=== PATIENT | female | born 1945 | race Caucasian/White ===

== ENCOUNTER 2018-09-10 17:36 | Inpatient (IN) | payer OTHER ==
[~2018-09-10 17:36] MED LIST: LISINOPRIL 10 MG TABLET (FP) PO SCH
[2018-09-10 17:42] VITALS: BMI 35.4
--- NOTE | 2018-09-10 18:27 | PDOC ---
History of Present Illness - General Chief Complaint: Edema Stated Complaint: DIABETES, HIGH BLOOD PRESSURE Time Seen by Provider: 09/10/18 17:54 - History of Present Illness Initial Comments: 09/10/18 18:26 Patient is a 72 year old female with past medical history of HTN and DM, presented with right facial drooping that started last night. Patient noted right eyelid drooping before she slept, and noted it worsening this morning. She had her blood pressure checked this morning which was elevated at 180/82. Patient denies headache, dizziness, blurring of vision, difficulty swallowing, slurring of speech, facial numbness. Patient also reports bilateral leg swelling that started yesterday. Denies chest pain, SOB, palpitations, abdominal pain, diarrhea, constipation, urinary symptoms. Past History - Past Medical History Allergies/Adverse Reactions: Allergies Allergy/AdvReac Type Severity Reaction Status Date / Time No Known Allergies Allergy Verified 09/10/18 17:38 Home Medications: Ambulatory Orders Aspirin [ASA -] 81 mg PO DAILY 09/10/18 Hydrochlorothiazide [Hctz -] 25 mg PO DAILY 09/10/18 Lisinopril 10 mg PO DAILY 09/10/18 Metoprolol Tartrate 50 mg PO BID 09/10/18 metFORMIN HCL [Metformin HCl] 500 mg PO DAILY 09/10/18 Amlodipine Besylate [Norvasc -] 5 mg PO DAILY 30 Days #30 tablet 09/13/18 Atorvastatin Ca [Lipitor] 80 mg PO HS 30 Days #30 tablet 09/13/18 COPD: No Diabetes: Yes HTN: Yes - Immunization History Immunization Up to Date: Yes - Suicide/Smoking/Psychosocial Hx Smoking History: Never smoked Hx Alcohol Use: No Drug/Substance Use Hx: No Review of Systems - Review of Systems Constitutional: No: Chills, Fever, Loss of Appetite, Weakness HEENTM: No: Eye Pain, Recent change in vision, Ear Discharge, Nose Congestion, Difficulty Swallowing Respiratory: No: Cough, Shortness of Breath Cardiac (ROS): No: Chest Pain, Lightheadedness, Palpitations ABD/GI: No: Abdominal Distended, Constipated, Diarrhea, Nausea, Vomiting : No: Burning, Dysuria, Discharge Neurological: No: Headache, Numbness, Tingling, Weakness, Unsteady Gait *Physical Exam - Vital Signs Last Vital Signs Temp Pulse Resp BP Pulse Ox 98.0 F 62 18 179/68 H 97 09/10/18 17:38 09/10/18 17:38 09/10/18 17:38 09/10/18 17:38 09/10/18 17:38 - Physical Exam Comments: 09/10/18 18:53 General: awake, alert, oriented, not in acute distress Head: no signs of head trauma HEENT: PERRLA, EOMI, sclerae anicteric, no nasal discharge, non-erythematous oropharynx, dry mucous membranes Neck:soft, supple, trachea midline without thyromegaly Lungs:clear to auscultation bilaterally, good air entry Heart:regular rate and rhythm, normal S1/S2, no m,r,g Abdomen:soft, nontender, nondistended, NABS Ext: +2 pulses, +nonpitting edema, no cyanosis, no clubbing Neuro: AAOx4, +right facial drooping, CN II-XII intact, motor strength 5/5, sensation intact, no dysmetria, no dysdiadochokinesia, normal speech, normal gait NIH stroke scale : +1 Moderate Sedation - Procedure Monitoring Vital Signs: Procedure Monitoring Vital Signs Temperature 98.0 F 09/10/18 17:38 Pulse Rate 62 09/10/18 17:38 Respiratory Rate 18 09/10/18 17:38 Blood Pressure 179/68 H 09/10/18 17:38 O2 Sat by Pulse Oximetry (%) 97 09/10/18 17:38 ED Treatment Course - LABORATORY CBC & Chemistry Diagram: 09/13/18 05:30 09/13/18 05:30 Medical Decision Making - Medical Decision Making 09/10/18 19:08 Patient is a 72 year old female with past medical history of HTN and DM, presented with right facial drooping that started last night. DDx include but not limited to CVA, Walker's palsy, electrolyte abnormalities CBC, CMP, Cardiac profile EKG Head CT without contrast Will admit for further work-up of CVA vs Walker's palsy *DC/Admit/Observation/Transfer Diagnosis at time of Disposition: Cerebrovascular accident (CVA) - Discharge Dispostion Decision to Admit order: Yes - Prescriptions - Referrals - Patient Instructions - Post Discharge Activity
[2018-09-10] MEDS ORDERED: SODIUM CHLORIDE 1,000 ML IV SCH (19:00)
--- NOTE | 2018-09-10 19:45 | PDOC ---
Attending Attestation - Resident Resident Name: Augusta Gar - ED Attending Attestation I have performed the following: I have examined & evaluated the patient, The case was reviewed & discussed with the resident, I agree w/resident's findings & plan, Exceptions are as noted - HPI HPI: 09/10/18 19:39 72-year-old female patient with history of hypertension, diabetes presents with mild right-sided facial droop since yesterday night. The patient stated that she was undergoing a mild viral syndrome. Denies prior history of Lyme disease. Noted that she was still some mild right facial droop but denies any other symptoms including numbness or weakness. Denies slurring of speech. Denies chest pain or short of breath. Denies fevers or chills. Patient had checked her blood pressure today and noted that it was 180 systolic when is typically 130. She reports adherence to medications. - Physicial Exam PE: 09/10/18 19:45 GENERAL: Awake, alert, and fully oriented, in no acute distress HEAD: No signs of trauma EYES: EOMI, sclera anicteric, conjunctiva clear ENT: Auricles normal inspection, hearing grossly normal, nares patent, Moist mucosa NECK: Normal ROM, supple, LUNGS: Breath sounds equal, clear to auscultation bilaterally. No wheezes, and no crackles HEART: Regular rate and rhythm, normal S1 and S2, no murmurs, rubs or gallops ABDOMEN: Soft, nontender, No guarding, no rebound. No masses EXTREMITIES: Normal range of motion, no edema. No clubbing or cyanosis. No cords, erythema, or tenderness NEUROLOGICAL: Cranial nerves II through XII but with very mild right eyelid droop. Able to wrinkle forehead. Normal speech, no dysarthria, no dysmetria. Heel to duncan normal. No pronator drift. Normal sensation and strength intact throughout. SKIN: Warm, Dry, normal turgor, no rashes or lesions noted. - Medical Decision Making 09/10/18 19:47 Vital Signs Temp Pulse Resp BP Pulse Ox 98.0 F 62 18 179/68 H 97 09/10/18 17:38 09/10/18 17:38 09/10/18 17:38 09/10/18 17:38 09/10/18 17:38 Though pt has isolated facial droop, pt is able to wrinkle forehead. With BP is 180s systolic, and age and hx of HTN, DM, must presume ischemic stroke until proven otherwise. Walker's could potentially be in differential. However, will obtain head CT. Will likely require MRI brain. Labs, ecg, chest xray. Aspirin if head CT not hemorrhagic. Admit. 09/10/18 20:43 CBC, BMP 09/10/18 18:[address] reviewed. No acute findings. Heart Score/ECG Review #1 ECG reviewed & interpreted by me at: 19:25 09/10/18 21:33 NSR 53 with 1st degree AV block, normal axis, QRS 82 msec, QTC 416 msec, no std/ tyron NIH Stroke Scale - Last Known Well Date/Time & Onset Date Last Known Well: 09/09/18 - Initial Evaluation Level of consciousness: Alert Ask patient the month and their age: Answers both correctly Ask patient to open & close eyes; make fist and let go: Obeys both correctly Best gaze (horizontal eye movement): Normal Visual field testing: No visual field loss Facial paresis (Show teeth/raise eyebrows/close eyes tight): Minor paralysis ( flattened nasolabial fold, asymmetry on smiling) Motor Function: Left Arm: Normal Motor Function: Right Arm: Normal (extends arm 90 (or 45) degrees for 10 seconds without drift Motor Function: Left Leg: Normal (extends leg 30 degrees for 5 seconds without drift) Motor Function: Right Leg: Normal (extends leg 30 degrees for 5 seconds without drift) Limb Ataxia: No ataxia Sensory(Use pinprick test arms,legs,trunk,face/side to side): Normal Best language (Describe picture, name items, read sentences): No Aphasia Dysarthria (read several words): Normal articulation Extinction and Inattention: No abnormality - Total Score NIH Stroke Scale Score: 1
[2018-09-10 19:46] LABS: BASO % 0.5 % (0-2.0); EOS % 6.6 % (0-4.5); HEMATOCRIT 34.1 % (32.4-45.2); LYMPH % 25.3 % (8-40); MCH 22.9 pg (25.7-33.7); MCHC 32.4 g/dl (32.0-36.0); MEAN CELL VOLUME 70.6 fl (80-96); MEAN PLT VOLUME 8.6 fl (7.5-11.1); NEUT % 59.6 % (42.8-82.8); PLATELET COUNT 274 K/MM3 (134-434); RBC 4.83 M/mm3 (3.60-5.2); RDW 16.9 % (11.6-15.6)
[2018-09-10 20:03] LABS: INR 1.16 (0.83-1.09); PROTHROMBIN TIME (PATIENT) 13.7 SEC (9.7-13.0)
[2018-09-10 20:49] LABS: ALBUMIN 3.5 g/dl (3.4-5.0); ALK PHOS 87 U/L (45-117); ANION GAP 6 MMOL/L (8-16); BILIRUBIN,TOTAL 0.3 mg/dL (0.2-1); BLOOD UREA NITROGEN 21 mg/dL (7-18); CALCIUM 8.8 mg/dL (8.5-10.1); CHLORIDE 108 mmol/L (98-107); CHOLESTEROL 127 mg/dL (50-200); CO2 29 mmol/L (21-32); CREATININE 0.8 mg/dL (0.55-1.3); GLUCOSE,RANDOM 94 mg/dL (74-106); HDL CHOLESTEROL 70 mg/dL (40-60); POTASSIUM 4.1 mmol/L (3.5-5.1); SGOT/AST 38 U/L (15-37); SGPT/ALT 72 U/L (13-61); SODIUM 144 mmol/L (136-145); TOT PROT 6.6 g/dl (6.4-8.2); TRIGLYCERIDES 62 mg/dL (0-150)
[2018-09-10] MEDS ORDERED: ASPIRIN 325 MG ENTERIC COATED TABLET (FP) PO ONE (20:54)
[2018-09-10] MEDS ORDERED: ASPIRIN 325 MG TABLET ONE (21:07)
--- NOTE | 2018-09-10 21:07 | HP ---
CHIEF COMPLAINT:R/O CVA PCP:Dr Gallego HISTORY OF PRESENT ILLNESS: Patient is a 72 year old female with past medical history of HTN and DM, presented with right facial drooping that started last night with slurry speech. Patient noted right eyelid drooping before she slept, and noted it worsening this morning. She had her blood pressure checked this morning which was elevated at 180/82 around 2 [facility] . Patient denies headache , dizziness, blurring of vision, difficulty swallowing, facial numbnessor ext weakness, tingling. Patient also reports bilateral leg swelling that started yesterday. Denies chest pain, SOB, palpitations, abdominal pain, diarrhea, constipation, urinary symptoms. had a history of flue last month and her son had flue as well. reports palpitation 2 weeks ago. ER course was notable for: (1)Head CT (2)CXR (3)EKG Recent Travel: denies PAST MEDICAL HISTORY: HTN , DM PAST SURGICAL HISTORY: Tubal resection after ectopic Social History: Smokin/2 PPD for 10 years in her 19 Alcohol:socially Drugs: denies Family History:HTN, Heart attack in her father at age of 89 Allergies No Known Allergies Allergy (Verified 09/10/18 17:38) HOME MEDICATIONS: Home Medications Medication Instructions Recorded Aspirin [ASA -] 81 mg PO DAILY 09/10/18 Lisinopril 10 mg PO DAILY 09/10/18 Metoprolol Tartrate 50 mg PO BID 09/10/18 metFORMIN HCL [Metformin HCl] 500 mg PO DAILY 09/10/18 REVIEW OF SYSTEMS CONSTITUTIONAL: Absent: fever, chills, diaphoresis, generalized weakness, malaise, loss of appetite, weight change HEENT: Absent: rhinorrhea, nasal congestion, throat pain, throat swelling, difficulty swallowing, mouth swelling, ear pain, eye pain, visual changes CARDIOVASCULAR: Absent: chest pain, syncope, palpitations, irregular heart rate, lightheadedness , peripheral edema RESPIRATORY: Absent: cough, shortness of breath, dyspnea with exertion, orthopnea, wheezing, stridor, hemoptysis GASTROINTESTINAL: Absent: abdominal pain, abdominal distension, nausea, vomiting, diarrhea, constipation, melena, hematochezia GENITOURINARY: Absent: dysuria, frequency, urgency, hesitancy, hematuria, flank pain, genital pain MUSCULOSKELETAL: Absent: myalgia, arthralgia, joint swelling, back pain, neck pain SKIN: Absent: rash, itching, pallor HEMATOLOGIC/IMMUNOLOGIC: Absent: easy bleeding, easy bruising, lymphadenopathy, frequent infections ENDOCRINE: Absent: unexplained weight gain, unexplained weight loss, heat intolerance, cold intolerance NEUROLOGIC: Absent: headache, focal weakness or paresthesias, dizziness, unsteady gait, seizure, mental status changes, bladder or bowel incontinence PSYCHIATRIC: Absent: anxiety, depression, suicidal or homicidal ideation, hallucinations. PHYSICAL EXAMINATION Vital Signs - 24 hr 09/10/18 09/10/18 17:38 21:05 Temperature 98.0 F 98.1 F Pulse Rate 62 Pulse Rate [ 58 L Right Radial] Respiratory 18 20 Rate Blood Pressure 179/68 H Blood Pressure 162/81 [Left Arm] O2 Sat by Pulse 97 99 Oximetry (%) GENERAL: Awake, alert, and fully oriented, in no acute distress. HEAD: Normal with no signs of trauma. EYES: Pupils equal, round and reactive to light, extraocular movements intact, right eye lid drop EARS, NOSE, THROAT: Moist mucous membranes. NECK: Normal range of motion, supple LUNGS: Breath sounds equal, clear to auscultation bilaterally. No wheezes, and no crackles. No accessory muscle use. HEART: Regular rate and rhythm, normal S1 and S2 without murmur, rub or gallop. ABDOMEN: Obese, Soft, nontender, not distended, normoactive bowel sounds, no guarding, MUSCULOSKELETAL: Normal range of motion at all joints. No bony deformities or tenderness. No CVA tenderness. UPPER EXTREMITIES: 2+ pulses, warm, well-perfused. No cyanosis. No clubbing. No peripheral edema. LOWER EXTREMITIES: 2+ pulses, warm, well-perfused. No calf tenderness. +2 peripheral edema. NEUROLOGICAL: right facial drop eye lid and mouth . Normal speech. 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 hip flexion 5/5 , hip extesion 5/5 B/L, leg flexion and extension 5/5 B/L , foot flexion and extension 5/5 B/L. PSYCHIATRIC: Cooperative. Good eye contact. SKIN: Warm, dry, normal turgor, Laboratory Results - last 24 hr 09/10/18 09/10/1809/10/18 18:38 18:38 18:38 WBC 9.0 RBC 4.83 Hgb 11.0 Hct 34.1 MCV 70.6 L MCH 22.9 L MCHC 32.4 RDW 16.9 H Plt Count 274 MPV 8.6 Absolute Neuts (auto) 5.4 Neutrophils % 59.6 Lymphocytes % 25.3 Monocytes % 8.0 Eosinophils % 6.6 H D Basophils % 0.5 Nucleated RBC % 0 PT with INR 13.70 H INR 1.16 H Sodium 144 Potassium 4.1 Chloride 108 H Carbon Dioxide 29 Anion Gap 6 L BUN 21 H Creatinine 0.8 Creat Clearance w eGFR > 60 Random Glucose 94 Calcium 8.8 Total Bilirubin 0.3 AST 38 H ALT 72 H Alkaline Phosphatase 87 Total Protein 6.6 Albumin 3.5 Triglycerides 62 Cholesterol 127 Total LDL Cholesterol 47 HDL Cholesterol 70 H Blood Type Antibody Screen 09/10/18 18:38 WBC RBC Hgb Hct MCV MCH MCHC RDW Plt Count MPV Absolute Neuts (auto) Neutrophils % Lymphocytes % Monocytes % Eosinophils % Basophils % Nucleated RBC % PT with INR INR Sodium Potassium Chloride Carbon Dioxide Anion Gap BUN Creatinine Creat Clearance w eGFR Random Glucose Calcium Total Bilirubin AST ALT Alkaline Phosphatase Total Protein Albumin Triglycerides Cholesterol Total LDL Cholesterol HDL Cholesterol Blood Type O POSITIVE Antibody Screen Negative CBC, BMP 09/10/18 18:38 09/10/18 18:38 ASSESSMENT/PLAN: 72 year old female with pmhx of HTN , DM , presented with one day history of right facial drop admitted to R/O CVA # Right facial drop R/o CVA unlikley Lyme or Walker palsy as she had slurry speech * more than 24 hour since last seen in usual state of health * CBC , CMP , ESR , CRP * PTT, INR * ASA 325 * Lipid panel * permissive HTN * finger stick * low sodium diabetic diet as she was able to swallow water at bed side * PT , early ambulation * head CT negative primary reading , BRAIN MRI tomorrow * Echocardiogram * Neurocheck q 2 hr * neurology was consulted BY ED Dr Dale * lipid panel WNL though will start statin 40 * ESR, CRP , Lyme screen * NIH stroke scale 1 # HTN * permissive HTN * resume home meds tomorrow losartan 10 BID , HCTZ 25 daily, metoprolol tartarat 25 mg BID # DM * On metformin at home will hold for now * BGM ACHS * ISS * A1c # obesity * BMI 35.4 * Educated about exercise and weight loss # FEN * No standing fluids * Monitor Lytes * Low sodium diabetic diet # proph * Dvts : SCDS Both legs #Dispo * Tele obs She use [facility] [address] was closed upon admission will verify home meds when open Daughtersaid she take HCTZ 25 mg po daily need o be verified Visit type - Emergency Visit Emergency Visit: Yes Care time: The patient presented to the Emergency Department on the above date and was hospitalized for further evaluation of their emergent condition. - New Patient This patient is new to me today: Yes Date on this admission: 09/10/18 - Critical Care Critical Care patient: No
--- NOTE | 2018-09-10 21:08 | PN ---
Teaching Attending Note Name of Resident: Chapin Spicer ATTENDING PHYSICIAN STATEMENT I saw and evaluated the patient. I reviewed the resident's note and discussed the case with the resident. I agree with the resident's findings and plan as documented. SUBJECTIVE: Patient is a 72-year-old woman with history of hypertension, NIDDM and obesity who presents with mild right-sided facial droop since yesterday night. The patient stated that she was undergoing a mild viral syndrome. Denies prior history of Lyme disease. Noted that she was still some mild right facial droop but denies any other symptoms including numbness or weakness. Denies slurring of speech. Denies chest pain or short of breath. Denies fevers or chills. Patient had checked her blood pressure today and noted that it was 180 systolic when is typically 130. She reports adherence to medications. OBJECTIVE: Alert Vital Signs Period Temp Pulse Resp BP Sys/Morales Pulse Ox Last 24 Hr 98.0 F-98.1 F 58-62 18-20 162-179/68-81 97-99 HEENT: No Jaundice, eye redness or discharge, PERRLA, EOMI. Mild right lower facial droop. Normocephalic, atraumatic. External ears are normal and hearing is grossly intact. No nasal discharge. Neck: Supple, nontender. No palpable adenopathy or thyromegaly. No JVD Chest: Good effort. Clear to auscultation and percussion. Heart: Regular. No S3, rub or murmur Abdomen: Not distended, soft, nontender and no HSM. No rebound or guarding. Normoactive bowel sounds. Ext: Peripheral pulses intact. No leg edema. Skin: Warm and dry. No petechiae, rash or ecchymosis. Neuro: Alert. Oriented x3. CN 2-12 grossly intact. Sensation grossly intact in all four extremities and DTR are symmetric. Current Medications Generic Name Dose Route Start Last Admin Trade Name Freq PRN Reason Stop Dose Admin Sodium Chloride 1,000 mls @ 42 mls/hr 09/10/18 19:00 09/10/18 20:13 Normal Saline - IV 42 mls/hr ASDIR JOSE LUIS Administration Home Medications Medication Instructions Recorded Aspirin [ASA -] 81 mg PO DAILY 09/10/18 Lisinopril 10 mg PO DAILY 09/10/18 Metoprolol Tartrate 50 mg PO BID 09/10/18 metFORMIN HCL [Metformin HCl] 500 mg PO DAILY 09/10/18 Abnormal Lab Results 09/10/18 09/10/18 09/10/18 18:38 18:38 18:38 MCV 70.6 L MCH 22.9 L RDW 16.9 H Eosinophils % 6.6 H D PT with INR 13.70 H INR 1.16 H Chloride 108 H Anion Gap 6 L BUN 21 H AST 38 H ALT 72 H HDL Cholesterol 70 H ASSESSMENT AND PLAN: 1. r/o CVA - Noncontrast head CT didnot show any acute pathology. EKG shows bradycardia wtih no significant ST-T wave changes. NIHSS was 1. Presentation highly suspicious for a CVA. Passed swallow evaluation. Will admit to telemetry , get ECHO, carotid doppler, optimize statin therapy, continue Aspirin, consult PT and Neurology. For now, will avoid aggressive lowering of his BP. Nonpharmacologic measures to control hypertension like weight loss, salt restriction and exercise discussed. 2. DM - For now, we will hold the home diabetes drugs and implement sliding scale insulin regimen. Provide comprehensive diabetes care with patient teaching and counseling about the importance of euglycemia, eye care and foot care. 3. Obesity - Will provide patient all the necessary assistance, counseling and positive reinforcement to facilitate weight loss. Consult cia agent. 4. DVT prophylaxis - Lovenox 40 mg SQ q 24 hours. 5. Advance directives - Full code
[2018-09-10] MEDS ORDERED: ACETAMINOPHEN 325 MG TABLET (FP) PO PRN (22:23)
[2018-09-11 02:29] LABS: URINE APPEARANCE CLEAR; URINE BILIRUBIN NEGATIVE (<2.0 mg/dL); URINE COLOR STRAW; URINE GLUCOSE (UA) NEGATIVE (NEGATIVE); URINE KETONE NEGATIVE (NEGATIVE); URINE LEUK ESTERASE TRACE (NEGATIVE); URINE NITRITE NEGATIVE (NEGATIVE); URINE PROTEIN NEGATIVE (NEGATIVE); URINE UROBILINOGEN NEGATIVE mg/dL (0.2-1.0)
[2018-09-11 02:40] LABS: EPI CELLS RARE /HPF (FEW)
[2018-09-11 05:57] LABS: BASO % 0.4 % (0-2.0); EOS % 5.3 % (0-4.5); HEMATOCRIT 33.1 % (32.4-45.2); HEMOGLOBIN 10.2 GM/dL (10.7-15.3); LYMPH % 27.9 % (8-40); MCHC 30.8 g/dl (32.0-36.0); MEAN CELL VOLUME 71.3 fl (80-96); MEAN PLT VOLUME 8.7 fl (7.5-11.1); NEUT % 58.4 % (42.8-82.8); PLATELET COUNT 236 K/MM3 (134-434); RBC 4.64 M/mm3 (3.60-5.2); RDW 16.9 % (11.6-15.6); WHITE BLOOD COUNT 7.5 K/mm3 (4.0-10.0)
[2018-09-11 06:11] LABS: INR 1.19 (0.83-1.09); PROTHROMBIN TIME (PATIENT) 14.1 SEC (9.7-13.0)
[2018-09-11 06:14] LABS: ACTIVATED PTT 30.2 SECONDS (25.2-36.5)
[2018-09-11 06:38] LABS: ALBUMIN 3.2 g/dl (3.4-5.0); ALK PHOS 74 U/L (45-117); ANION GAP 7 MMOL/L (8-16); BILIRUBIN,TOTAL 0.5 mg/dL (0.2-1); BLOOD UREA NITROGEN 17 mg/dL (7-18); CALCIUM 8.5 mg/dL (8.5-10.1); CHLORIDE 111 mmol/L (98-107); CO2 28 mmol/L (21-32); CREATININE 0.7 mg/dL (0.55-1.3); GLUCOSE,RANDOM 94 mg/dL (74-106); MAGNESIUM 2.2 mg/dL (1.8-2.4); PHOSPHOROUS 4.1 mg/dL (2.5-4.9); POTASSIUM 4.4 mmol/L (3.5-5.1); SGOT/AST 32 U/L (15-37); SGPT/ALT 64 U/L (13-61); SODIUM 146 mmol/L (136-145)
--- NOTE | 2018-09-11 09:21 | EKG ---
Test Reason : Blood Pressure : / mmHG Vent. Rate : 053 BPM Atrial Rate : 053 BPM P-R Int : 204 ms QRS Dur : 082 ms QT Int : 444 ms P-R-T Axes : 046 078 051 degrees QTc Int : 416 ms SINUS BRADYCARDIA OTHERWISE NORMAL ECG WHEN COMPARED WITH ECG OF 14-JAN-2014 21:00, NO SIGNIFICANT CHANGE WAS FOUND Confirmed by ИВАН PINEDA MD ([id number]) on 09/11/2018 9:21:24 AM Referred By: Confirmed By:ИВАН PINEDA MD
[2018-09-11] MEDS: LISINOPRIL 10 MG TABLET (FP) PO SCH (10:45)
[2018-09-11] MEDS: ASPIRIN 81 MG CHEWABLE TABLETS PO SCH (10:45)
[2018-09-11] MEDS: METOPROLOL TARTRATE 50 MG TABLET (FP) PO SCH ×2 (10:45→22:08)
[2018-09-11 10:46] LABS: ERYTHROCYTE SEDIMENTATION RATE 6 mm/hr (0-30)
--- NOTE | 2018-09-11 10:57 | CON.NEURO ---
Consult - Alcohol/Substance Use Hx Alcohol Use: No - Smoking History Smoking history: Never smoked Home Medications - Allergies Allergies/Adverse Reactions: Allergies Allergy/AdvReac Type Severity Reaction Status Date / Time No Known Allergies Allergy Verified 09/10/18 17:38 - Home Medications Home Medications: Ambulatory Orders Aspirin [ASA -] 81 mg PO DAILY 09/10/18 Hydrochlorothiazide [Hctz -] 25 mg PO DAILY 09/10/18 Lisinopril 10 mg PO DAILY 09/10/18 Metoprolol Tartrate 50 mg PO BID 09/10/18 metFORMIN HCL [Metformin HCl] 500 mg PO DAILY 09/10/18 Physical Exam-Neuro Vital Signs: Vital Signs Temperature 97.9 F 09/11/18 09:49 Pulse Rate 68 09/11/18 09:49 Respiratory Rate 18 09/11/18 09:49 Blood Pressure 167/85 09/11/18 09:49 O2 Sat by Pulse Oximetry (%) 99 09/11/18 09:49 Labs: CBC, BMP 09/11/18 05:05 09/11/18 05:05 INR, PTT INR 1.19 (0.83-1.09) H 09/11/18 05:05 Assessment/Plan cc facial droppiness and slurring of speech HPI 72 year old female history of HTN,DM, came with right facial dropoiness and slurring of speech. Patient was seen with daugher at bedside. Her bp was elevated upto 180/82. Patient's slurring of speech is ormal. Patient denies any headhace, or arm or leg weaknes,s no diplopia and dysphagia. Patient ct scan was normal, she had mri done and report pending. P PAST MEDICAL HISTORY: HTN , DM PAST SURGICAL HISTORY: Tubal resection after ectopic Social History: Smokin/2 PPD for 10 years in her 19 Alcohol:socially Drugs: denies Family History:HTN, Heart attack in her father at age of 89 Allergies No Known Allergies Allergy (Verified 09/10/18 17:38) HOME MEDICATIONS: Home Medications Medication Instructions Recorded Aspirin [ASA -] 81 mg PO DAILY 09/10/18 Lisinopril 10 mg PO DAILY 09/10/18 Metoprolol Tartrate 50 mg PO BID 09/10/18 metFORMIN HCL [Metformin HCl] 500 mg PO DAILY 09/10/18 ROS reviewed in chart and Family History reviewed in chart NEUROLOGICAL EXAMINATION Alert oriented x 3, speech is normal, no neck stiffness eomi, pupils reactive, ? right facial palsy motor 5/5 all extremity sensation is normal for pp,ft planter is flexor ct head is normal carotid ultrasound and mri of brain is pending Assessment; Likely to be TIA, symptoms almost resolved, risk factor DM,HTN plan start lipitor 80 mg once a day continue aspoirin follow up mri results and carotid ultrasound - echo may be obtained , if she admitted - dvt prophylaxis, speech therapy, and PT Thankign you so much Darrion Dale MD
[2018-09-11] MEDS: INSULIN SLIDING SCALE (NOVOLOG) 1 VIAL SQ SCH ×3 (11:43→22:14)
--- NOTE | 2018-09-11 14:48 | PN ---
Physical Exam: SUBJECTIVE: Patient seen and examined, minimal right facial droop, but no slurry speech. Overall better per discussion with daughter at bedside. OBJECTIVE: Vital Signs Period Temp Pulse Resp BP Sys/Morales Pulse Ox Last 24 Hr 97.9 F-98.4 F 54-68 18-20 162-179/64-85 97-99 GENERAL: The patient is awake, alert, and fully oriented, in no acute distress. HEAD: Normal with no signs of trauma. EYES: PERRL, extraocular movements intact, sclera anicteric, conjunctiva clear. No ptosis. ENT: Ears normal, nares patent, oropharynx clear without exudates, moist mucous membranes. NECK: Trachea midline, full range of motion, supple. LUNGS: Breath sounds equal, clear to auscultation bilaterally, no wheezes, no crackles, no accessory muscle use. HEART: S1S2 regular ABDOMEN: Soft, nontender, obese, nondistended, normoactive bowel sounds, no guarding, no rebound, EXTREMITIES: 2+ pulses, warm, well-perfused, no edema. NEUROLOGICAL: AAOx3, right facial droop, speech at baseline per family at bedside, EOMI, sensations intact and symmetric to light touch bialterally, pwoer 5/5, sensation intact to light touch, toes down going, DTR b/l symmetric, Cranial nerves II through XII grossly intact. gait not observed. PSYCH: Normal mood, normal affect. SKIN: Warm, dry, normal turgor, no rashes or lesions noted Laboratory Results - last 24 hr 09/10/18 09/10/18 09/10/18 18:38 18:38 18:38 WBC 9.0 RBC 4.83 Hgb 11.0 Hct 34.1 MCV 70.6 L MCH 22.9 L MCHC 32.4 RDW 16.9 H Plt Count 274 MPV 8.6 Absolute Neuts (auto) 5.4 Neutrophils % 59.6 Lymphocytes % 25.3 Monocytes % 8.0 Eosinophils % 6.6 H D Basophils % 0.5 Nucleated RBC % 0 ESR PT with INR 13.70 H INR 1.16 H PTT (Actin FS) Sodium 144 Potassium 4.1 Chloride 108 H Carbon Dioxide 29 Anion Gap 6 L BUN 21 H Creatinine 0.8 Creat Clearance w eGFR > 60 POC Glucometer Random Glucose 94 Hemoglobin A1c % Calcium 8.8 Phosphorus Magnesium Total Bilirubin 0.3 AST 38 H ALT 72 H Alkaline Phosphatase 87 Creatine Kinase 151 Creatine Kinase Index 1.0 CK-MB (CK-2) 1.6 Troponin I < 0.02 C-Reactive Protein Total Protein 6.6 Albumin 3.5 Triglycerides 62 Cholesterol 127 Total LDL Cholesterol 47 HDL Cholesterol 70 H TSH Urine Color Urine Appearance Urine pH Ur Specific [place] Urine Protein Urine Glucose (UA) Urine Ketones Urine Blood Urine Nitrite Urine Bilirubin Urine Urobilinogen Ur Leukocyte Esterase Urine WBC (Auto) Urine RBC (Auto) Ur Epithelial Cells Blood Type Antibody Screen 09/10/18 09/10/18 09/11/18 18:38 22:58 00:20 WBC RBC Hgb Hct MCV MCH MCHC RDW Plt Count MPV Absolute Neuts (auto) Neutrophils % Lymphocytes % Monocytes % Eosinophils % Basophils % Nucleated RBC % ESR PT with INR INR PTT (Actin FS) Sodium Potassium Chloride Carbon Dioxide Anion Gap BUN Creatinine Creat Clearance w eGFR POC Glucometer Random Glucose Hemoglobin A1c % Calcium Phosphorus Magnesium Total Bilirubin AST ALT Alkaline Phosphatase Creatine Kinase 129 Creatine Kinase Index CK-MB (CK-2) Troponin I 0.02 C-Reactive Protein Total Protein Albumin Triglycerides Cholesterol Total LDL Cholesterol HDL Cholesterol TSH Urine Color Urine Appearance Urine pH Ur Specific [place] Urine Protein Urine Glucose (UA) Urine Ketones Urine Blood Urine Nitrite Urine Bilirubin Urine Urobilinogen Ur Leukocyte Esterase Urine WBC (Auto) Urine RBC (Auto) Ur Epithelial Cells Blood Type O POSITIVE Cancelled Antibody Screen Negative 09/11/18 09/11/18 09/11/18 01:45 05:05 05:05 WBC 7.5 RBC 4.64 Hgb 10.2 L Hct 33.1 MCV 71.3 L MCH 22.0 L MCHC 30.8 L RDW 16.9 H Plt Count 236 MPV 8.7 Absolute Neuts (auto) 4.4 Neutrophils % 58.4 Lymphocytes % 27.9 Monocytes % 8.0 Eosinophils % 5.3 H Basophils % 0.4 Nucleated RBC % 0 ESR 6 PT with INR INR PTT (Actin FS) Sodium 146 H Potassium 4.4 Chloride 111 H Carbon Dioxide 28 Anion Gap 7 L BUN 17 Creatinine 0.7 Creat Clearance w eGFR > 60 POC Glucometer Random Glucose 94 Hemoglobin A1c % Calcium 8.5 Phosphorus 4.1 Magnesium 2.2 Total Bilirubin 0.5 AST 32 ALT 64 H Alkaline Phosphatase 74 Creatine Kinase Creatine Kinase Index CK-MB (CK-2) Troponin I C-Reactive Protein < 0.3 Total Protein 6.0 L Albumin 3.2 L Triglycerides Cholesterol Total LDL Cholesterol HDL Cholesterol TSH 0.68 Urine Color Straw Urine Appearance Clear Urine pH 6.0 Ur Specific [place] 1.010 Urine Protein Negative Urine Glucose (UA) Negative Urine Ketones Negative Urine Blood Negative Urine Nitrite Negative Urine Bilirubin Negative Urine Urobilinogen Negative Ur Leukocyte Esterase Trace Urine WBC (Auto) 2 Urine RBC (Auto) None Ur Epithelial Cells Rare Blood Type Antibody Screen 09/11/18 09/11/18 09/11/18 05:05 05:05 07:24 WBC RBC Hgb Hct MCV MCH MCHC RDW Plt Count MPV Absolute Neuts (auto) Neutrophils % Lymphocytes % Monocytes % Eosinophils % Basophils % Nucleated RBC % ESR PT with INR 14.10 H INR 1.19 H PTT (Actin FS) 30.2 Sodium Potassium Chloride Carbon Dioxide Anion Gap BUN Creatinine Creat Clearance w eGFR POC Glucometer 117.23290 Random Glucose Hemoglobin A1c % 5.6 Calcium Phosphorus Magnesium Total Bilirubin AST ALT Alkaline Phosphatase Creatine Kinase Creatine Kinase Index CK-MB (CK-2) Troponin I C-Reactive Protein Total Protein Albumin Triglycerides Cholesterol Total LDL Cholesterol HDL Cholesterol TSH Urine Color Urine Appearance Urine pH Ur Specific [place] Urine Protein Urine Glucose (UA) Urine Ketones Urine Blood Urine Nitrite Urine Bilirubin Urine Urobilinogen Ur Leukocyte Esterase Urine WBC (Auto) Urine RBC (Auto) Ur Epithelial Cells Blood Type Antibody Screen Active Medications Generic Name Dose Route Start Last Admin Trade Name Freq PRN Reason Stop Dose Admin Acetaminophen 650 mg 09/10/18 22:23 Tylenol - PO Q6H PRN PAIN LEVEL 1 - 3 Aspirin 81 mg 09/11/18 10:00 09/11/18 10:45 Asa - PO 81 mg DAILY JOSE LUIS Administration Atorvastatin Calcium 80 mg 09/11/18 22:00 Lipitor - PO HS JOSE LUIS Sodium Chloride 1,000 mls @ 42 mls/hr 09/10/18 19:00 09/10/18 20:13 Normal Saline - IV 42 mls/hr ASDIR JOSE LUIS Administration Insulin Aspart 1 vial 09/11/18 11:00 09/11/18 11:43 Novolog Vial Sliding Scale - SQ Not Given ACHS [facility] Protocol Lisinopril 10 mg 09/11/18 10:00 09/11/18 10:45 Prinivil PO 10 mg DAILY JOSE LUIS Administration Metoprolol Tartrate 50 mg 09/11/18 10:00 09/11/18 10:45 Lopressor - PO 50 mg BID JOSE LUIS Administration Home Medications Medication Instructions Recorded Aspirin [ASA -] 81 mg PO DAILY 09/10/18 Hydrochlorothiazide [Hctz -] 25 mg PO DAILY 09/10/18 Lisinopril 10 mg PO DAILY 09/10/18 Metoprolol Tartrate 50 mg PO BID 09/10/18 metFORMIN HCL [Metformin HCl] 500 mg PO DAILY 09/10/18 MRI results reviewed EKG NSR Carotid duplex results reviewed ASSESSMENT/PLAN: 72 yof with PMhx of HTN, NIDDM, morbid obesity (BMI 35.4) admitted with right facial droop. -Right facial droop, suspect TIA -Uncontrolled HTN, TIA related vs long standing poorly controlled -NIDDM -Morbid obesity Plan: Neurology input noted. MRI neg for CVA but chronic infarcts. ASA 81 mg daily. Statin added. Carotid duplex noted. Telemetry, follow up 2D echo. Symptoms for almost 48 hours, Continue lisinopril/metoprolol. Patient and daughter counseled on home BP monitoring. D/c IVF. Cleared bedside eval, PO as tolerated, speech/swallow eval. PT eval DVTPPX with [employer] Dispo d/c in 24hours if no new concerns Plan discussed with patient and daughter at bedside in detail, all questions answered. Visit type - Emergency Visit Emergency Visit: Yes ED Registration Date: 09/10/18 Care time: The patient presented to the Emergency Department on the above date and was hospitalized for further evaluation of their emergent condition. - New Patient This patient is new to me today: Yes Date on this admission: 09/11/18 - Critical Care Critical Care patient: No - Discharge Referral Referred to [facility] No
--- NOTE | 2018-09-11 17:15 | EKG ---
Test Reason : Blood Pressure : / mmHG Vent. Rate : 051 BPM Atrial Rate : 051 BPM P-R Int : 186 ms QRS Dur : 080 ms QT Int : 450 ms P-R-T Axes : 049 079 043 degrees QTc Int : 414 ms SINUS BRADYCARDIA OTHERWISE NORMAL ECG WHEN COMPARED WITH ECG OF 10-SEP-2018 19:26, NO SIGNIFICANT CHANGE WAS FOUND Confirmed by ИВАН PINEDA MD ([id number]) on 09/11/2018 5:15:12 PM Referred By: Vanessa GARIBAY Confirmed By:ИВАН PINEDA MD
[2018-09-11] MEDS ORDERED: METOPROLOL TARTRATE 50 MG TABLET (FP) ONE (21:57)
[2018-09-11] MEDS ORDERED: ATORVASTATIN CA 80 MG TABLET (FP) ONE (21:58)
[2018-09-11] MEDS: ATORVASTATIN CA 80 MG TABLET (FP) PO SCH (22:08)
[2018-09-11] MEDS ORDERED: INSULIN (NOVOLOG) ASPART 100 UNITS/ML 10ML VIAL ONE (22:11)
[2018-09-12 06:04] LABS: ANION GAP 5 MMOL/L (8-16); BLOOD UREA NITROGEN 13 mg/dL (7-18); CALCIUM 8.4 mg/dL (8.5-10.1); CHLORIDE 109 mmol/L (98-107); CO2 29 mmol/L (21-32); CREATININE 0.7 mg/dL (0.55-1.3); GLUCOSE,RANDOM 90 mg/dL (74-106); MAGNESIUM 2.1 mg/dL (1.8-2.4); PHOSPHOROUS 3.8 mg/dL (2.5-4.9); SODIUM 143 mmol/L (136-145)
[2018-09-12] MEDS: INSULIN SLIDING SCALE (NOVOLOG) 1 VIAL SQ SCH ×4 (06:48→22:00)
[2018-09-12] MEDS: HYDROCHLOROTHIAZIDE 25 MG TABLET (FP) PO SCH (09:30)
[2018-09-12] MEDS: LISINOPRIL 10 MG TABLET (FP) PO SCH (09:30)
[2018-09-12] MEDS: ASPIRIN 81 MG CHEWABLE TABLETS PO SCH (09:30)
[2018-09-12] MEDS: METOPROLOL TARTRATE 50 MG TABLET (FP) PO SCH ×2 (09:30→21:45)
[2018-09-12] MEDS ORDERED: HYDROCHLOROTHIAZIDE 25 MG TABLET (FP) ONE (09:36)
[2018-09-12] MEDS ORDERED: ATORVASTATIN CA 80 MG TABLET (FP) ONE (09:37)
[2018-09-12] MEDS ORDERED: amLODIPine BESYLATE 5 MG TABLET (FP) PO SCH (10:00)
--- NOTE | 2018-09-12 10:16 | PN ---
Progress Note (short form) - Note Progress Note: 72 year old female history of HTN,DM, came with right facial dropoiness and slurring of speech. Patient was seen with daugher at bedside. Her bp was elevated upto 180/82. Patient's slurring of speech is ormal. Patient denies any headhace, or arm or leg weaknes,s no diplopia and dysphagia. Patient ct scan was normal, she had mri done and report pending. Her slurring of speech has resolved , mri of brain and carotid ultrasound unremarkable. SHe is on statin and aspirin NEUROLOGICAL EXAMINATION Alert oriented x 3, speech is normal, no neck stiffness eomi, pupils reactive, ? right facial palsy( old ) motor 5/5 all extremity sensation is normal for pp,ft planter is flexor ct head is normal carotid ultrasound and mri of brain is unremarkable Assessment; Likely to be TIA, symptoms almost resolved, risk factor DM,HTN Plan continue aspirin and statin - bp can be treated more aggressive now as 24 hour has passed - dvt prophylaxis, speech therapy, and PT -Patient daughter is quite unhappy as she could not get bed and want to sign out ama, I tried to explain that we do not treat bp for initial 24 hours, as she was also concern about high bp for her mom Thankign you so much Darrion Dale MD
--- NOTE | 2018-09-12 11:07 | ECHO ---
Name: DIMA MCCULLOUGH Exam:Adult Echocardiogram Study Date: 09/12/2018 08:01 AM Age: 72 yrs Reason For Study: ACS Height: 63 in Weight: 200 lb BSA: 1.9 m2 MMode/2D Measurements & Calculations IVSd: 1.2 cm Ao root diam: 3.2 cm LVIDd: 4.0 cm LA dimension: 3.8 cm LVIDs: 2.6 cm LVPWd: 1.0 cm EDV(Teich): 68.6 ml LAV (MOD-bp): 79.7 ml ESV(Teich): 24.3 ml Doppler Measurements & Calculations MV E max lul: 117.0 cm/sec AI P1/2t: 676.2 msec MV A max lul: 94.1 cm/sec MV E/A: 1.2 MV dec time: 0.19 sec AI max lul: 381.7 cm/sec MR max lul: 411.6 cm/sec AI max P.3 mmHg MR max P.8 mmHg AI dec slope: 165.4 cm/sec2 TR max lul: 280.7 cm/sec PI end-d lul: 78.7 cm/sec TR max P.6 mmHg Med Peak E' Lul: 7.6 cm/sec Med E/e': 15.4 Lat Peak E' Lul: 9.7 cm/sec Lat E/e': 12.1 Procedure A complete two-dimensional transthoracic echocardiogram was performed (2D, M-mode, Doppler and color flow Doppler). Left Ventricle The left ventricle is normal in size. Left ventricular systolic function is normal. Ejection Fraction = 60- 65%. No regional wall motion abnormalities noted. Right Ventricle The right ventricle is normal size. The right ventricular systolic function is normal. Atria The left atrium is mildly dilated. LA volume index is 36 ml/m2. Right atrial size is normal. Mitral Valve The mitral valve is normal in structure and function. There is mild mitral regurgitation. Tricuspid Valve The tricuspid valve is normal in structure and function. There is mild tricuspid regurgitation. Pulmo nary artery systolic pressure is at least 42 mmHg assuming RA pressure of 3 mmHg (normal IVC and >50% adelita apse). Aortic Valve The aortic valve is normal in structure and function. Mild aortic regurgitation. Pulmonic Valve The pulmonic valve is not well visualized. Mild pulmonic valvular regurgitation. Great Vessels The aortic root is normal size. Pericardium/Pleura There is no pericardial effusion. Interpretation Summary The left ventricle is normal in size. Left ventricular systolic function is normal. No regional wall motion abnormalities noted. Ejection Fraction = 60-65%. The right ventricular systolic function is normal. Right atrial size is normal. There is mild mitral regurgitation. There is mild tricuspid regurgitation. Pulmonary artery systolic pressure is at least 42 mmHg assuming RA pressure of 3 mmHg (normal IVC and >50% collapse) Mild aortic regurgitation. Mild pulmonic valvular regurgitation. There is no pericardial effusion. Previous study is not available for comparison Michael Olmos MD 09/12/2018 11:06 AM
[2018-09-12] MEDS: amLODIPine BESYLATE 5 MG TABLET (FP) PO SCH (12:34)
[2018-09-12] MEDS ORDERED: hydrALAZINE HCL 20 MG/ML VIAL IVPUSH ONE (12:45)
--- NOTE | 2018-09-12 15:09 | PN ---
Physical Exam: SUBJECTIVE: Patient seen and examined at bedside - patients BP was elevated overnight; however she denies any CP/SOB/N/V fevers or chills. as per daughter at bedside- patients speech still seems to be slurred OBJECTIVE: Vital Signs Period Temp Pulse Resp BP Sys/Morales Pulse Ox Last 24 Hr 97.9 F-98.4 F 57-107 18-19 157-206/81-101 97-100 GENERAL: The patient is awake, alert, and fully oriented, in no acute distress with a right facial droop. EYES: right eyelid droop, EOMI; no scleral icterus NECK: no JVD, no lympahdenopathy LUNGS: CTA B/L; no rales, rhonchi or wheezing HEART: Regular rate and rhythm, S1, S2 without murmur, rub or gallop. ABDOMEN: Soft, nontender, nondistended, normoactive bowel sounds, no guarding, no rebound, no hepatosplenomegaly, no masses. EXTREMITIES: 2+ pulses, warm, well-perfused, no edema. NEUROLOGICAL: Cranial nerves II through XII grossly intact. Normal speech, gait not observed. right facial droop; sensation intact B/L; strength 5/5 B/L SKIN: Warm, dry, normal turgor, no rashes or lesions noted Laboratory Results - last 24 hr 09/11/18 09/11/18 09/11/18 11:23 16:40 22:07 Sodium Potassium Chloride Carbon Dioxide Anion Gap BUN Creatinine Creat Clearance w eGFR POC Glucometer 121.14645 134.09755 172.88749 Random Glucose Calcium Phosphorus Magnesium 09/12/18 09/12/18 09/12/18 05:05 06:46 11:31 Sodium 143 Potassium 4.0 Chloride 109 H Carbon Dioxide 29 Anion Gap 5 L BUN 13 Creatinine 0.7 Creat Clearance w eGFR > 60 POC Glucometer 118.91709 129.49409 Random Glucose 90 Calcium 8.4 L Phosphorus 3.8 Magnesium 2.1 Active Medications Generic Name Dose Route Start Last Admin Trade Name Freq PRN Reason Stop Dose Admin Acetaminophen 650 mg 09/10/18 22:23 Tylenol - PO Q6H PRN PAIN LEVEL 1 - 3 Amlodipine Besylate 5 mg 09/12/18 12:30 09/12/18 12:34 Norvasc - PO 5 mg DAILY JOSE LUIS Administration Aspirin 81 mg 09/11/18 10:00 09/12/18 09:30 Asa - PO 81 mg DAILY JOSE LUIS Administration Atorvastatin Calcium 80 mg 09/11/18 22:00 09/11/18 22:08 Lipitor - PO 80 mg HS JOSE LUIS Administration Hydrochlorothiazide 25 mg 09/12/18 10:00 09/12/18 09:30 Hctz - PO 25 mg DAILY JOSE LUIS Administration Insulin Aspart 1 vial 09/11/18 11:00 09/12/18 11:39 Novolog Vial Sliding Scale - SQ Not Given [facility] Protocol Lisinopril 10 mg 09/11/18 10:00 09/12/18 09:30 Prinivil PO 10 mg DAILY JOSE LUIS Administration Metoprolol Tartrate 50 mg 09/11/18 10:00 09/12/18 09:30 Lopressor - PO 50 mg BID JOSE LUIS Administration ASSESSMENT/PLAN: 72 year old female with pmhx of HTN , DM , presented with one day history of right facial drop admitted to R/O CVA #TIA likely 2/2 hypertensive urgency v. possible bells palsy? patients BP meds were restarted however BP remains high; added norvasc 5 daily -MRI and dopplers were negative -echo is normal with the exception of pulmonary hypertension -possibly 2/2 to bells palsy given patients persistent facial deficits and recent URI, ? if speech is still slurred or this is baseline -lyme serology pending -neuor consulted; f/u recs -ASA 81 -statin lipitor 80 #HTN c/w home medications in addition to the norvasc 5 daily -monitor BP #DM --ISS -BGMS ACHS F/E/N not on fluids -monitor electrolytes diabetic diet Problem List - Problems (1) Hypertension Code(s): I10 - ESSENTIAL (PRIMARY) HYPERTENSION (2) TIA (transient ischemic attack) Code(s): G45.9 - TRANSIENT CEREBRAL ISCHEMIC ATTACK, UNSPECIFIED (3) Diabetes Code(s): E11.9 - TYPE 2 DIABETES MELLITUS WITHOUT COMPLICATIONS Visit type - Emergency Visit Emergency Visit: Yes ED Registration Date: 09/12/18 Care time: The patient presented to the Emergency Department on the above date and was hospitalized for further evaluation of their emergent condition. - New Patient This patient is new to me today: Yes Date on this admission: 09/12/18 - Critical Care Critical Care patient: No
--- NOTE | 2018-09-12 16:03 | PN ---
Teaching Attending Note Name of Resident: Iris Reis ATTENDING PHYSICIAN STATEMENT I saw and evaluated the patient. I reviewed the resident's note and discussed the case with the resident. I agree with the resident's findings and plan as documented with exceptions below. SUBJECTIVE: Patient seen and examined. Overall unchanged, no headache, chest pain, palpitations, dyspnea or dizziness. OBJECTIVE: Vital Signs Period Temp Pulse Resp BP Sys/Morales Pulse Ox Last 24 Hr 97.9 F-98.4 F 57-116 18-19 157-206/80-101 97-100 Intake & Output 09/09/18 09/10/18 09/11/18 09/12/18 23:59 23:59 23:59 23:59 Intake Total 336 Balance 336 Weight 200 lb 200 lb General: sitting in bed in no acute distress Chest: CTAB, no rales or wheezing Abdomen:Soft, obese, NT Extremities: no edema Neuro AAOX3, right facial droop, right face flattening,but able to elevate both eyebrows, slurred speech per daughter, ?facial palsy Active Medications Acetaminophen (Tylenol -) 650 mg PO Q6H PRN PRN Reason: PAIN LEVEL 1 - 3 Amlodipine Besylate (Norvasc -) 5 mg PO DAILY [facility] Last Admin: 09/12/18 12:34 Dose: 5 mg Aspirin (Asa -) 81 mg PO DAILY [facility] Last Admin: 09/12/18 09:30 Dose: 81 mg Atorvastatin Calcium (Lipitor -) 80 mg PO HS [facility] Last Admin: 09/11/18 22:08 Dose: 80 mg Hydrochlorothiazide (Hctz -) 25 mg PO DAILY [facility] Last Admin: 09/12/18 09:30 Dose: 25 mg Insulin Aspart (Novolog Vial Sliding Scale -) 1 vial SQ [facility]; Protocol Last Admin: 09/12/18 11:39 Dose: Not Given Lisinopril (Prinivil) 10 mg PO DAILY [facility] Last Admin: 09/12/18 09:30 Dose: 10 mg Metoprolol Tartrate (Lopressor -) 50 mg PO BID [facility] Last Admin: 09/12/18 09:30 Dose: 50 mg Laboratory Results - last 24 hr 09/11/18 09/11/18 09/12/18 16:40 22:07 05:05 Sodium 143 Potassium 4.0 Chloride 109 H Carbon Dioxide 29 Anion Gap 5 L BUN 13 Creatinine 0.7 Creat Clearance w eGFR > 60 POC Glucometer 134.50482 172.54142 Random Glucose 90 Calcium 8.4 L Phosphorus 3.8 Magnesium 2.1 09/12/18 09/12/18 06:46 11:31 Sodium Potassium Chloride Carbon Dioxide Anion Gap BUN Creatinine Creat Clearance w eGFR POC Glucometer 118.53264 129.86136 Random Glucose Calcium Phosphorus Magnesium 2D echo/carotid duplex/MRI brain results reviewed ASSESSMENT AND PLAN: 72 yof with PMhx of HTN, NIDDM, morbid obesity (BMI 35.4) admitted with right facial droop. -Right facial droop, suspect TIA vs ?short's palsy -Uncontrolled HTN, TIA related vs long standing poorly controlled -NIDDM -Morbid obesity Plan: Neurology input noted. MRI neg for CVA but chronic infarcts. ASA 81 mg daily. Lipid panel noted Carotid duplex/2D echo noted. Still hypertensive. Add norvasc. Continue lisinopril/HCTZ/metoprolol. hold off on d/c till BP improved. Dispo plan for d/c when BP improved if no concerns. DVTPPX lovenox. Plan discussed with patient and daughter at bedside in detail, all questions answered.
[2018-09-12] MEDS: ATORVASTATIN CA 80 MG TABLET (FP) PO SCH (21:45)
[2018-09-13] MEDS: INSULIN SLIDING SCALE (NOVOLOG) 1 VIAL SQ SCH ×2 (06:19→11:25)
[2018-09-13 06:22] LABS: HEMATOCRIT 39.1 % (32.4-45.2); HEMOGLOBIN 11.8 GM/dL (10.7-15.3); MCH 21.5 pg (25.7-33.7); MCHC 30.1 g/dl (32.0-36.0); MEAN CELL VOLUME 71.5 fl (80-96); MEAN PLT VOLUME 8.6 fl (7.5-11.1); PLATELET COUNT 266 K/MM3 (134-434); RBC 5.47 M/mm3 (3.60-5.2); RDW 16.7 % (11.6-15.6); WHITE BLOOD COUNT 9.2 K/mm3 (4.0-10.0)
[2018-09-13 07:02] LABS: ANION GAP 6 MMOL/L (8-16); BLOOD UREA NITROGEN 18 mg/dL (7-18); CALCIUM 9.1 mg/dL (8.5-10.1); CHLORIDE 108 mmol/L (98-107); CO2 29 mmol/L (21-32); CREATININE 0.9 mg/dL (0.55-1.3); GLUCOSE,RANDOM 103 mg/dL (74-106); MAGNESIUM 2.1 mg/dL (1.8-2.4); PHOSPHOROUS 4.5 mg/dL (2.5-4.9); POTASSIUM 4.7 mmol/L (3.5-5.1); SODIUM 142 mmol/L (136-145)
--- NOTE | 2018-09-13 07:30 | PN ---
Physical Exam: SUBJECTIVE: Patient seen and examined at bedside- no acute events overnight; patient states that she is feeling well; she denies any chest pain, SOB,N/V fevers or chills OBJECTIVE: Vital Signs Period Temp Pulse Resp BP Sys/Morales Pulse Ox Last 24 Hr 97.8 F-98.3 F 57-116 18-20 137-206/71-101 98-100 GENERAL: The patient is awake, alert, and fully oriented, in no acute distress. EYES:no scleral icterus NECK: no JVD, no lymphadenopathy. LUNGS: CTA B/L; no rales, rhonchi or wheezing. HEART: Regular rate and rhythm, S1, S2 without murmur, rub or gallop. ABDOMEN: Soft, nontender, nondistended, normoactive bowel sounds, no guarding, no rebound, no hepatosplenomegaly, no masses. EXTREMITIES: 2+ pulses, warm, well-perfused, no edema. NEUROLOGICAL: Cranial nerves II through XII grossly intact. Normal speech, gait not observed. right facial droop; flattening of right face however patient able to raise both eyebrows- no longer slurred speech- sensation and strength intact B/L PSYCH: Normal mood, normal affect. SKIN: Warm, dry, normal turgor, no rashes or lesions noted Laboratory Results - last 24 hr 09/12/18 09/12/18 09/12/18 11:31 17:08 21:59 Sodium Potassium Chloride Carbon Dioxide Anion Gap BUN Creatinine Creat Clearance w eGFR POC Glucometer 129.61751 110 106 Random Glucose Calcium Phosphorus Magnesium 09/13/18 09/13/18 05:30 06:18 Sodium 142 Potassium 4.7 Chloride 108 H Carbon Dioxide 29 Anion Gap 6 L BUN 18 Creatinine 0.9 Creat Clearance w eGFR > 60 POC Glucometer 104 Random Glucose 103 Calcium 9.1 Phosphorus 4.5 Magnesium 2.1 Active Medications Generic Name Dose Route Start Last Admin Trade Name Freq PRN Reason Stop Dose Admin Acetaminophen 650 mg 09/10/18 22:23 Tylenol - PO Q6H PRN PAIN LEVEL 1 - 3 Amlodipine Besylate 5 mg 09/12/18 12:30 09/12/18 12:34 Norvasc - PO 5 mg DAILY JOSE LUIS Administration Aspirin 81 mg 09/11/18 10:00 09/12/18 09:30 Asa - PO 81 mg DAILY JOSE LUIS Administration Atorvastatin Calcium 80 mg 09/11/18 22:00 09/12/18 21:45 Lipitor - PO 80 mg HS JOSE LUIS Administration Enoxaparin Sodium 40 mg 09/13/18 10:00 Lovenox - SQ DAILY JOSE LUIS Hydrochlorothiazide 25 mg 09/12/18 10:00 09/12/18 09:30 Hctz - PO 25 mg DAILY JOSE LUIS Administration Insulin Aspart 1 vial 09/11/18 11:00 09/13/18 06:19 Novolog Vial Sliding Scale - SQ Not Given ACHS [facility] Protocol Lisinopril 10 mg 09/11/18 10:00 09/12/18 09:30 Prinivil PO 10 mg DAILY JOSE LUIS Administration Metoprolol Tartrate 50 mg 09/11/18 10:00 09/12/18 21:45 Lopressor - PO 50 mg BID JOSE LUIS Administration ASSESSMENT/PLAN: 72 year old female with pmhx of HTN , DM , presented with one day history of right facial drop admitted to R/O CVA #TIA likely 2/2 hypertensive urgency v. possible bells palsy? patients BP meds were restarted however BP remains high; added norvasc 5 daily -MRI and dopplers were negative -echo normal with the exception of an elevated PA pressure -possibly 2/2 to bells palsy given patients persistent facial deficits and recent URI, ? if speech is still slurred or this is baseline -lyme serology pending -neuro consulted; f/u recs -ASA 81 -high dose statin lipitor 80 #HTN c/w home medications in addition to the norvasc 5 daily -monitor BP #DM --ISS -BGMS ACHS F/E/N not on fluids -monitor electrolytes diabetic diet Problem List - Problems (1) Hypertension Code(s): I10 - ESSENTIAL (PRIMARY) HYPERTENSION (2) TIA (transient ischemic attack) Code(s): G45.9 - TRANSIENT CEREBRAL ISCHEMIC ATTACK, UNSPECIFIED (3) Diabetes Code(s): E11.9 - TYPE 2 DIABETES MELLITUS WITHOUT COMPLICATIONS
[2018-09-13] MEDS: LISINOPRIL 10 MG TABLET (FP) PO SCH (09:23)
[2018-09-13] MEDS: METOPROLOL TARTRATE 50 MG TABLET (FP) PO SCH (09:23)
[2018-09-13] MEDS: ASPIRIN 81 MG CHEWABLE TABLETS PO SCH (09:23)
[2018-09-13] MEDS: amLODIPine BESYLATE 5 MG TABLET (FP) PO SCH (09:23)
[2018-09-13] MEDS: HYDROCHLOROTHIAZIDE 25 MG TABLET (FP) PO SCH (09:23)
[2018-09-13 09:32] VITALS: BP 148/66; PULSE 79; TEMP 98.6
[2018-09-13] MEDS ORDERED: ENOXAPARIN NA (PORCINE) 40 MG/0.4 ML DISP.SYRIN SQ SCH (10:00)
--- NOTE | 2018-09-13 12:11 | PN ---
Teaching Attending Note Name of Resident: Iris Reis ATTENDING PHYSICIAN STATEMENT I saw and evaluated the patient. I reviewed the resident's note and discussed the case with the resident. I agree with the resident's findings and plan as documented. SUBJECTIVE:asymptomatic. denies CP, SOB, fever, chills, N/V/C/D, slurred speech OBJECTIVE: Last Vital Signs Temp Pulse Resp BP Pulse Ox 98.6 F 79 20 148/66 97 09/13/18 09:31 09/13/18 09:31 09/13/18 09:31 09/13/18 09:31 09/13/18 09:00 General NAD CV S1 S2 RRR no murmur/rub/gallop Lungs CTA B/L no wheezing/rales/rhonchi Neuro flattening of R frontal folds, does move on raising of the eyebrows. remaining CN intact, strength equal in all 4 extremities ASSESSMENT AND PLAN: 72 yo F with PMhx of HTN, NIDDM, morbid obesity (BMI 35.4) admitted with right facial droop. 1. Right facial droop, suspect TIA vs ?short's palsy- conitnues to have. no other deficits. no slurred speech. MRI negative for acute CVA but shows old infarcts. cont asa/statin. neuro on board. Lyme titer sent and can f/u with neuro as outpatient for further testing 2. HTN- now controlled. norvasc started yesterday. stressed importance of tight BP control.. cont current regimen 3. DM- resume home medications 4. Obesity- lifestyle changes 5. DVT ppx- lovenox 6. spoke with daughter over the phone. updated on medication adjustments and need for tight BP management and follow up with PMD and neuro. all questions answered. d/c home
--- NOTE | 2018-09-13 13:51 | DS ---
Physical Exam: SUBJECTIVE: Patient seen and examined OBJECTIVE: Vital Signs Period Temp Pulse Resp BP Sys/Morales Pulse Ox Last 24 Hr 97.8 F-98.6 F 65-116 18-20 137-160/66-83 97-100 PHYSICAL EXAM GENERAL: The patient is awake, alert, and fully oriented, in no acute distress. HEAD: Normal with no signs of trauma. EYES: PERRL, extraocular movements intact, sclera anicteric, conjunctiva clear. ENT: Ears normal, nares patent, oropharynx clear without exudates, moist mucous membranes. NECK: Trachea midline, full range of motion, supple. LUNGS: Breath sounds equal, clear to auscultation bilaterally, no wheezes, no crackles, no accessory muscle use. HEART: Regular rate and rhythm, S1, S2 without murmur, rub or gallop. ABDOMEN: Soft, nontender, nondistended, normoactive bowel sounds, no guarding, no rebound, no hepatosplenomegaly, no masses. EXTREMITIES: 2+ pulses, warm, well-perfused, no edema. NEUROLOGICAL: Cranial nerves II through XII grossly intact. Normal speech, gait not observed. PSYCH: Normal mood, normal affect. SKIN: Warm, dry, normal turgor, no rashes or lesions noted. LABS Laboratory Results - last 24 hr 09/12/18 09/12/18 09/13/18 17:08 21:59 05:30 WBC 9.2 RBC 5.47 H Hgb 11.8 Hct 39.1 D MCV 71.5 L MCH 21.5 L MCHC 30.1 L RDW 16.7 H Plt Count 266 MPV 8.6 Sodium Potassium Chloride Carbon Dioxide Anion Gap BUN Creatinine Creat Clearance w eGFR POC Glucometer 110 106 Random Glucose Calcium Phosphorus Magnesium 09/13/18 09/13/18 09/13/18 05:30 06:18 11:10 WBC RBC Hgb Hct MCV MCH MCHC RDW Plt Count MPV Sodium 142 Potassium 4.7 Chloride 108 H Carbon Dioxide 29 Anion Gap 6 L BUN 18 Creatinine 0.9 Creat Clearance w eGFR > 60 POC Glucometer 104 104 Random Glucose 103 Calcium 9.1 Phosphorus 4.5 Magnesium 2.1 imaging: Brain MRI: Impression: Moderate atrophy and periventricular chronic microvascular ischemic disease changes. Bilateral subinsular chronic infarct, left slightly more prominent than right that may be involving the external capsule. No acute intracranial pathology is identified. Carotid Dopplers: No evidence of hemodynamically significant stenoses Head CT: no evidence of acute intracranial pathology HOSPITAL COURSE: Date of Admission:09/12/18 72 y/o female with PMH of HTN, DM presented to the ED with a one day history of worsening right facial droop and slurred speech. Upon arrival to the ED patient BP was elevated with systolics in the high 180's. Patient endorsed that she had not been taking her BP pills (usually takes HCTZ 25, metoprolol 25 BID, losartan 10) Her neuro exam was benign minus the slurred speech and right facial droop; patient had also been endorsing some URI symptoms the few days leading up to admission. Her labs were stable- and imaging showed no acute pathology; we had the neurologist come and see the patient who recommended high dose statin and ASA and to follow up as an outpatient. for BP control we added amlodipine 5mg daily to patients home regimen. Her BP was well controlled and we discharged patient on her BP meds in addition to ASA and statin and to follow up with her PCP and neurologsit within one week. Date of Discharge: 09/13/18 Minutes to complete discharge: 39 Discharge Summary Reason For Visit: CEREBRALVASCULAR ACCIDENT (CVA) Current Active Problems Diabetes (Acute) Hypertension (Acute) TIA (transient ischemic attack) (Acute) Condition: Stable - Instructions Diet, Activity, Other Instructions: You came to the emergency room with a right facial droop and slurred speech and your blood pressure was found to be very elevated. Please resume all of your home medications in addition: -Please take the medication Norvasc 5mg daily for your blood pressure -Please take the medication Lipitor 80mg at bedtime for your cholesterol We advise that you monitor your blood pressures at home. PLease notify your primary care doctor if BP is greater than 160/90. If you are having symptoms with this blood pressure (dizzyness, blurred vision, chest pain, shortness of breath) come to the ER immediately. Please follow up with your primary care physician Dr. Hendricks within one week Please follow up with the neurologist, Dr. Dale within one week * also your thyroid function was low on admission, we advise that you get these repeated within a few weeks *if you begin to experience any changes in speech/gait, blurred vision, headaches, chest pain, shortness of breath, fevers please return to the emergency room immediately Referrals: Darrion Dale MD [Staff Physician] - 1 Week Penelope Tolbert MD [Primary Care Provider] - 1 Week Disposition: HOME - Home Medications Comprehensive Discharge Medication List: Ambulatory Orders Aspirin [ASA -] 81 mg PO DAILY 09/10/18 Hydrochlorothiazide [Hctz -] 25 mg PO DAILY 09/10/18 Lisinopril 10 mg PO DAILY 09/10/18 Metoprolol Tartrate 50 mg PO BID 09/10/18 metFORMIN HCL [Metformin HCl] 500 mg PO DAILY 09/10/18 Amlodipine Besylate [Norvasc -] 5 mg PO DAILY 30 Days #30 tablet 09/13/18 Atorvastatin Ca [Lipitor] 80 mg PO HS 30 Days #30 tablet 09/13/18 Problem List - Problems (1) Hypertension Code(s): I10 - ESSENTIAL (PRIMARY) HYPERTENSION (2) TIA (transient ischemic attack) Code(s): G45.9 - TRANSIENT CEREBRAL ISCHEMIC ATTACK, UNSPECIFIED (3) Diabetes Code(s): E11.9 - TYPE 2 DIABETES MELLITUS WITHOUT COMPLICATIONS This patient is new to me today: No Emergency Visit: Yes ED Registration Date: 09/12/18 Care time: The patient presented to the Emergency Department on the above date and was hospitalized for further evaluation of their emergent condition. Critical Care patient: No - Discharge Referral Referred to [facility] Med [facility].C[facility] No
== END 2018-09-13 13:59 | disposition home or self-care (01) | DRG 69 ==
LOC: JER 17:36 → JERBED 21:28 → J4W 09-12 11:40 → OBSVTOIN 09-12 12:09
PROVIDERS: ADMIT Internal Medicine; ATTEND Internal Medicine
DX: G45.9 Transient cerebral ischemic attack, unspecified (principal); I16.0 Hypertensive urgency; R47.81 Slurred speech; R29.810 Facial weakness; E11.9 Type 2 diabetes mellitus without complications; Z68.35 Body mass index [BMI] 35.0-35.9, adult; I10 Essential (primary) hypertension; Z79.84 Long term (current) use of oral hypoglycemic drugs; I44.0 Atrioventricular block, first degree; Z87.891 Personal history of nicotine dependence; E66.01 Morbid (severe) obesity due to excess calories
CPT/HCPCS: 36415; 70450-TC; 70551-TC; 71045-TC-FY; 80048; 80053; 81003; 81015; 82465; 82550; 82553; 82962; 83036; 83718; 83721; 83735; 84100; 84443; 84478; 84484; 85025; 85027; 85610; 85651; 85730; 86140; 86618; 86850; 86900; 86901; 93005; 93010; 93306-TC; 93880-TC; 97116-GP; 97161-GP; 99285-25; G0378; J7030

== ENCOUNTER 2019-06-22 12:26 | Emergency (ER) | payer OTHER ==
[2019-06-22 12:42] VITALS: BP 153/54; PULSE 67; TEMP 98.5; BMI 28.7
--- NOTE | 2019-06-22 12:50 | PDOC ---
Rapid Medical Evaluation Chief Complaint: Blood Pressure Problem Time Seen by Provider: 06/22/19 12:42 Medical Evaluation: Allergies Allergy/AdvReac Type Severity Reaction Status Date / Time No Known Allergies Allergy Verified 09/10/18 17:38 Vital Signs Temp Pulse Resp BP Pulse Ox 98.5 F 67 17 153/54 L 99 06/22/19 12:37 06/22/19 12:37 06/22/19 12:37 06/22/19 12:37 06/22/19 12:37 06/22/19 12:42 Patient c/o: high BP reading 180/100 this am, took BP med and decided to go to the ED despite having no complaints Patient on brief exam: vss, asypmtomatic Patient ordered for : none ( pt asked internet manager to chech her sugar since she does not have glucometer at home but has no complaints ) BGM 127 Patient to proceed to the ED Discharge Disposition - Diagnosis Hypertension - Referrals - Patient Instructions - Post Discharge Activity
--- NOTE | 2019-06-22 13:18 | PDOC ---
History of Present Illness - General Chief Complaint: Blood Pressure Problem Stated Complaint: HYPERTENSION Time Seen by Provider: 06/22/19 12:42 History Source: Patient Exam Limitations: No Limitations Past History - Past Medical History Allergies/Adverse Reactions: Allergies Allergy/AdvReac Type Severity Reaction Status Date / Time No Known Allergies Allergy Verified 09/10/18 17:38 Home Medications: Ambulatory Orders Aspirin [ASA -] 81 mg PO DAILY 09/10/18 Hydrochlorothiazide [Hctz -] 25 mg PO DAILY 09/10/18 Lisinopril 10 mg PO DAILY 09/10/18 Metoprolol Tartrate 50 mg PO BID 09/10/18 metFORMIN HCL [Metformin HCl] 500 mg PO DAILY 09/10/18 Amlodipine Besylate [Norvasc -] 5 mg PO DAILY 30 Days #30 tablet 09/13/18 Atorvastatin Ca [Lipitor] 80 mg PO HS 30 Days #30 tablet 09/13/18 Anemia: No Asthma: No Cancer: No Cardiac Disorders: No CVA: No COPD: No CHF: No Dementia: No Diabetes: Yes GI Disorders: No Disorders: No HTN: Yes Hypercholesterolemia: No Liver Disease: No Seizures: No Thyroid Disease: No - Surgical History Abdominal Surgery: No Appendectomy: No Cardiac Surgery: No Cholecystectomy: No Lung Surgery: No Neurologic Surgery: No Orthopedic Surgery: No - Immunization History Immunization Up to Date: Yes - Suicide/Smoking/Psychosocial Hx Smoking History: Never smoked Have you smoked in the past 12 months: No Information on smoking cessation initiated: No Hx Alcohol Use: No Drug/Substance Use Hx: No Substance Use Type: None Hx Substance Use Treatment: No *Physical Exam - Vital Signs Last Vital Signs Temp Pulse Resp BP Pulse Ox 98.5 F 67 17 153/54 L 99 06/22/19 12:37 06/22/19 12:37 06/22/19 12:37 06/22/19 12:37 06/22/19 12:37 ED Treatment Course - ADDITIONAL ORDERS Additional order review: Laboratory Results 06/22/19 12:35 POC Glucometer 127 06/22/19 12:35 POC Glucometer 127 *DC/Admit/Observation/Transfer Diagnosis at time of Disposition: Hypertension Qualifiers: Hypertension type: unspecified Qualified Code(s): I10 - Essential (primary) hypertension - Discharge Dispostion Disposition: HOME Condition at time of disposition: Stable Decision to Admit order: No - Referrals - Patient Instructions Printed Discharge Instructions: DI for High Blood Pressure Additional Instructions: Take pills on schedule to avoid highs and lows See PMD for evaluation and discussion of medication time frames. - Post Discharge Activity
== END 2019-06-22 13:39 | disposition home or self-care (01) ==
LOC: JERFT 12:26
DX: I10 Essential (primary) hypertension (principal); E11.9 Type 2 diabetes mellitus without complications; Z79.84 Long term (current) use of oral hypoglycemic drugs
CPT/HCPCS: 82962; 99281-25

== ENCOUNTER 2019-08-25 20:17 | Emergency (ER) | payer OTHER ==
[2019-08-25 20:25] VITALS: BP 121/51; PULSE 67; TEMP 98; BMI 32.1
--- NOTE | 2019-08-25 20:35 | PDOC ---
History of Present Illness - General History Source: Patient Exam Limitations: No Limitations - History of Present Illness Initial Comments: 73 year old female with PMH HTN, HLD, TIA (residual right sided facial drooping ) presented to ED for right jaw pain since yesterday. Pt reported her pain is constant, pressure like, no alleviating or aggravating factors. She reported about twice a week she has episodes of racing heart, when she takes her medications the sensation goes away. She reported feeling this sensation today, took two ASA and a glass of water and symptoms improved. She denied chest pain, shortness of breath, numbness, tingling, headache, vomiting, diarrhea, abdominal pain, back pain. She reported she had left arm pain yesterday, heard "a couple cracks" and figured her pain was muscular, and it resolved spontaneously yesterday. Today the jaw pain developed, and the intensity of the pain made her come to the ED for evaluation. ROS General: denied fever, chills, generalized weakness. HEENT: admitted to jaw pain. denied sore throat, rhinorrhea, ear pain. Cardiovascular: denied chest pain, palpitations, syncope, diaphoresis. Respiratory: denied shortness of breath, cough, sputum production, hemoptysis. Gastrointestinal: denied abdominal pain, nausea, vomiting, diarrhea, constipation, blood in stool. Genitourinary: denied dysuria, increased urinary frequency, hematuria, urinary incontinence, flank pain. Back: denied back pain. Musculoskeletal: denied joint pain, muscle pain, joint swelling. Neurological: denied headache, dizziness, numbness, tingling, weakness. Integumentary: denied rash, laceration, abrasion. Hematologic/Lymphatic: denied bruising or bleeding. PE Constitutional: Well-nourished, Well-developed, appearing stated age. HEENT: head is normocephalic, atraumatic. EOMI. PERRLA. no posterior pharyngeal erythema.no tonsillar swelling or exudates bilaterally. uvula midline. no peritonsillar swelling, tenderness or abscess. no jaw tenderness or misalignment. poor dentition, but no signs of infection/swelling/abscess. no tenderness along gum line. Neck: supple. Full ROM. Cardiovascular: regular heart rhythm. slight systolic aortic murmur. no pericardial friction rub. Respiratory: clear to auscultation bilaterally. no crackles, rhonchi or wheezing. no stridor. Gastrointestinal: soft, nontender. normal bowel sounds. no rebound, guarding, masses. Extremities: peripheral pulses intact. no lower extremity edema. Neurological: CN 2-12 grossly intact. moves all four extremities. lip drooping on the right, at baseline per pt and daughter at baseline. Psych: awake, alert, oriented x3. follows commands. answers questions appropriately. <Pauline Mir - Last Filed: 08/25/19 23:37> <Mayi Gifford - Last Filed: 08/26/19 01:19> - General Chief Complaint: Weakness Stated Complaint: WEAKNESS Time Seen by Provider: 08/25/19 20:34 Past History - Immunization History Immunization Up to Date: Yes - Psycho Social/Smoking Cessation Hx Smoking History: Never smoked Have you smoked in the past 12 months: No Hx Alcohol Use: No Drug/Substance Use Hx: No Substance Use Type: None Hx Substance Use Treatment: No <Pauline Mir - Last Filed: 08/25/19 23:37> <Mayi Gifford - Last Filed: 08/26/19 01:19> - Past Medical History Allergies/Adverse Reactions: Allergies Allergy/AdvReac Type Severity Reaction Status Date / Time No Known Allergies Allergy Verified 08/25/19 20:25 Home Medications: Ambulatory Orders Lisinopril 10 mg PO BID 09/10/18 Metoprolol Tartrate 50 mg PO BID 09/10/18 metFORMIN HCL [Metformin HCl] 500 mg PO DAILY 09/10/18 Atorvastatin Ca [Lipitor] 80 mg PO DAILY 08/25/19 *Physical Exam - Vital Signs Last Vital Signs Temp Pulse Resp BP Pulse Ox 98.0 F 67 18 121/51 L 100 08/25/19 20:23 08/25/19 20:23 08/25/19 20:23 08/25/19 20:23 08/25/19 20:23 <Pauline Mir - Last Filed: 08/25/19 23:37> - Vital Signs Last Vital Signs Temp Pulse Resp BP Pulse Ox 98.0 F 67 18 121/51 L 100 08/25/19 20:23 08/25/19 20:23 08/25/19 20:23 08/25/19 20:23 08/25/19 20:23 <Mayi Gifford - Last Filed: 08/26/19 01:19> ED Treatment Course - LABORATORY CBC & Chemistry Diagram: 08/25/19 21:31 08/25/19 21:31 <Pauline Mir - Last Filed: 08/25/19 23:37> - LABORATORY CBC & Chemistry Diagram: 08/25/19 21:31 08/25/19 21:31 - ADDITIONAL ORDERS Additional order review: Laboratory Results 08/25/19 08/25/19 08/25/19 21:31 21:31 21:31 PT with INR INR PTT (Actin FS) Sodium 139 Potassium 4.3 Chloride 107 Carbon Dioxide 29 Anion Gap 4 L BUN 23.6 H Creatinine 1.0 Est GFR (CKD-EPI)AfAm 64.27 Est GFR (CKD-EPI)NonAf 55.45 Random Glucose 118 H Calcium 9.1 Phosphorus 3.4 Magnesium 2.2 Total Bilirubin 0.3 AST 22 ALT 37 Alkaline Phosphatase 96 Creatine Kinase 113 Troponin I < 0.02 B-Natriuretic Peptide 85.4 Total Protein 6.4 Albumin 3.5 TSH 1.20 08/25/19 21:31 PT with INR 12.70 INR 1.08 PTT (Actin FS) 32.2 Sodium Potassium Chloride Carbon Dioxide Anion Gap BUN Creatinine Est GFR (CKD-EPI)AfAm Est GFR (CKD-EPI)NonAf Random Glucose Calcium Phosphorus Magnesium Total Bilirubin AST ALT Alkaline Phosphatase Creatine Kinase Troponin I B-Natriuretic Peptide Total Protein Albumin TSH 08/25/19 21:31 RBC 4.75 MCV 73.2 L MCHC 30.7 L RDW 17.8 H MPV 8.5 Neutrophils % 64.4 Lymphocytes % 23.9 Monocytes % 8.4 Eosinophils % 2.9 Basophils % 0.4 - Medications Given in the ED: ED Medications Discontinued Medications Generic Name Dose Route Start Last Admin Trade Name Freq PRN Reason Stop Dose Admin Acetaminophen 1,000 mg 08/25/19 21:34 08/25/19 21:58 Ofirmev Injection - IVPB 08/25/19 21:35 1,000 mg ONCE ONE Administration <Mayi Gifford - Last Filed: 08/26/19 01:19> Medical Decision Making - Medical Decision Making 73 year old female with above PMH presented to ED for right sided jaw pain since yesterday. Initial Vital Signs Temp Pulse Resp BP Pulse Ox 98.0 F 67 18 121/51 L 100 08/25/19 20:23 08/25/19 20:23 08/25/19 20:23 08/25/19 20:23 08/25/19 20:23 Afebrile. No tachycardia. No tachypnea. Mild diastolic hypotension. No hypoxia on room air. Labs ordered: CBC, CMP, mag, phos, cardiac profile Imaging ordered: CXR Medications ordered: Tylenol IV EKG performed at 2021: rate 58, regular rhythm, normal axis, SD 210, QTc 416, nonspecific ST changes. CXR my view: no infiltrate. no cardiomegaly. no pulmonary vascular congestion. -Pending official report 08/25/19 22:59 CBC WBC 11.2 K/mm3 (4.0-10.0) H 08/25/19 21:31 RBC 4.75 M/mm3 (3.60-5.2) 08/25/19 21:31 Hgb 10.7 GM/dL (10.7-15.3) 08/25/19 21:31 Hct 34.8 % (32.4-45.2) 08/25/19 21:31 MCV 73.2 fl (80-96) L 08/25/19 21:31 MCH 22.5 pg (25.7-33.7) L 08/25/19 21:31 MCHC 30.7 g/dl (32.0-36.0) L 08/25/19 21:31 RDW 17.8 % (11.6-15.6) H 08/25/19 21:31 Plt Count 308 K/MM3 (134-434) 08/25/19 21:31 MPV 8.5 fl (7.5-11.1) 08/25/19 21:31 Absolute Neuts (auto) 7.2 K/mm3 (1.5-8.0) 08/25/19 21:31 Neutrophils % 64.4 % (42.8-82.8) 08/25/19 21:31 Lymphocytes % 23.9 % (8-40) 08/25/19 21:31 Monocytes % 8.4 % (3.8-10.2) 08/25/19 21:31 Eosinophils % 2.9 % (0-4.5) 08/25/19 21:31 Basophils % 0.4 % (0-2.0) 08/25/19 21:31 Nucleated RBC % 0 % (0-0) 08/25/19 21:31 CMP Sodium 139 mmol/L (136-145) 08/25/19 21:31 Potassium 4.3 mmol/L (3.5-5.1) 08/25/19 21:31 Chloride 107 mmol/L (98-107) 08/25/19 21:31 Carbon Dioxide 29 mmol/L (21-32) 08/25/19 21:31 Anion Gap 4 MMOL/L (8-16) L 08/25/19 21:31 BUN 23.6 mg/dL (7-18) H 08/25/19 21:31 Creatinine 1.0 mg/dL (0.55-1.3) 08/25/19 21:31 Est GFR (CKD-EPI)AfAm 64.27 08/25/19 21:31 Est GFR (CKD-EPI)NonAf 55.45 08/25/19 21:31 Random Glucose 118 mg/dL (74-106) H 08/25/19 21:31 Calcium 9.1 mg/dL (8.5-10.1) 08/25/19 21:31 Phosphorus 3.4 mg/dL (2.5-4.9) 08/25/19 21:31 Magnesium 2.2 mg/dL (1.8-2.4) 08/25/19 21:31 Total Bilirubin 0.3 mg/dL (0.2-1) 08/25/19 21:31 AST 22 U/L (15-37) 08/25/19 21:31 ALT 37 U/L (13-61) 08/25/19 21:31 Alkaline Phosphatase 96 U/L (45-117) 08/25/19 21:31 Creatine Kinase 113 U/L (26-192) 08/25/19 21:31 Troponin I < 0.02 ng/ml (0.00-0.05) 08/25/19 21:31 B-Natriuretic Peptide 85.4 pg/ml (5-125) 08/25/19 21:31 Total Protein 6.4 g/dl (6.4-8.2) 08/25/19 21:31 Albumin 3.5 g/dl (3.4-5.0) 08/25/19 21:31 TSH 1.20 uIU/ml (0.358-3.74) 08/25/19 21:31 08/25/19 23:37 <ClarkePauline - Last Filed: 08/25/19 23:37> Discharge <ClarkePauline - Last Filed: 08/25/19 23:37> - Discharge Information Problems reviewed: Yes - Admission No <Mayi Gifford - Last Filed: 08/26/19 01:19> - Discharge Information Clinical Impression/Diagnosis: Jaw pain Condition: Improved Disposition: HOME - Follow up/Referral Referrals: Titi Barriga [Primary Care Provider] - - Patient Discharge Instructions Patient Printed Discharge Instructions: Jaw Pain: It's Not Just Stress Additional Instructions: 1) Please follow-up with your primary care doctor in the next 1-2 days. Please call tomorrow for for any urgent issues. 2) You were given a copy of the tests performed today. Please bring the results with you and review them with your primary care doctor. Your laboratory / imaging results were normal, including CT scan of your chest, no dissection, there are incidental thyroid nodules that should be followed up nonemergently, there is some swelling of your collecting system but you do not have signs of kidney or urinary tract infection, please follow this up 3) If you have any worsening of symptoms or any other concerns please return to the ED immediately. Return if worsening symptoms including fevers, headache, vomiting, visual or hearing disturbances, abdominal pain, chest pain, shortness of breath, syncope, dehydration, inability to take things by mouth/vomiting, altered mental status, or worsening concerning symptoms. 4) Please continue taking your home medications as directed. Stay well hydrated and rest adequately. Make an appointment. If you cannot follow-up with your primary care doctor please return to the ED ---- ------ 1) Mindy un seguimiento con garcia mdico de atencin primaria en los prximos 1-2 perez. Llame maana para cualquier problema urgente. 2) Le dieron kylie copia de las pruebas realizadas hoy. Traiga los resultados con usted y revselos con garcia mdico de atencin primaria. Los resultados de garcia laboratorio / imagen fueron normales, incluida la tomografa computarizada de garcia trax, sin diseccin, hay ndulos tiroideos incidentales que deben seguirse sin urgencia, hay algo de inflamacin de garcia sistema colector long no tiene signos de infeccin renal o del tracto urinario , por favor sigue esto 3) Si tiene algn empeoramiento de los sntomas o cualquier otra inquietud, regrese al servicio de urgencias de inmediato. Regrese si empeora los sntomas, kurt fiebre, dolor de lupis, vmitos, trastornos visuales o auditivos, dolor abdominal, dolor en el pecho, falta de aliento, sncope, deshidratacin, incapacidad para sarah cosas por la boca / vmitos, estado mental alterado o empeoramiento de los sntomas. 4) Contine tomando joe medicamentos caseros segn las indicaciones. Mantngase luciano hidratado y descanse adecuadamente. Mindy kylie paras Si no puede hacer un seguimiento con garcia mdico de atencin primaria, regrese al servicio de urgencias Print Language: CROATIAN - Post Discharge Activity
[2019-08-25] MEDS ORDERED: ACETAMINOPHEN 1000 MG/100 ML VIAL (NON FORMULARY) IVPB ONE (21:34)
[2019-08-25 21:44] LABS: BASO % 0.4 % (0-2.0); EOS % 2.9 % (0-4.5); HEMATOCRIT 34.8 % (32.4-45.2); HEMOGLOBIN 10.7 GM/dL (10.7-15.3); LYMPH % 23.9 % (8-40); MCH 22.5 pg (25.7-33.7); MCHC 30.7 g/dl (32.0-36.0); MEAN CELL VOLUME 73.2 fl (80-96); MEAN PLT VOLUME 8.5 fl (7.5-11.1); MONO % 8.4 % (3.8-10.2); NEUT % 64.4 % (42.8-82.8); PLATELET COUNT 308 K/MM3 (134-434); RBC 4.75 M/mm3 (3.60-5.2); RDW 17.8 % (11.6-15.6); WHITE BLOOD COUNT 11.2 K/mm3 (4.0-10.0)
[2019-08-25 22:00] LABS: ACTIVATED PTT 32.2 SECONDS (25.2-36.5)
[2019-08-25] MEDS ORDERED: ACETAMINOPHEN INJECTION 100 ML IVPB ONE (22:01)
--- NOTE | 2019-08-25 22:22 | PDOC ---
Documentation entered by Willy Michaels SCRIBE, acting as scribe for Mayi Gifford MD. Mayi Gifford MD: This documentation has been prepared by the Xenia harris Nirvannie, SCRIBE, under my direction and personally reviewed by me in its entirety. I confirm that the documentation accurately reflects all work, treatment, procedures, and medical decision making performed by me. Attending Attestation - Resident Resident Name: ClarkePauline - ED Attending Attestation I have performed the following: I have examined & evaluated the patient, The case was reviewed & discussed with the resident, I agree w/resident's findings & plan - HPI HPI: 08/25/19 20:57 [id number] with significant past medical history of HTN, HLD, and TIA who presents to the ED with right-sided jaw pain described as constant, pressure-like. She notes approximately twice a week (last episode today) episodes of palpitations which is resolved after taking her medications (today 2 Aspirin). Denies diaphoresis, shortness or breath, fevers, or chills. Allergies: None Past Medical History: HTN, HLD, and TIA Social history: Lives with family. No tobacco, ETOH or drug use. Surgical history: None reported. Meds: as documented in EMR PMD: Titi Pritchett - Physicial Exam PE: 08/25/19 20:53 NAD, well appearing, EOMI, PERRL, nl conjunctiva, anicteric; neck supple. lungs clear, RRR, abdomen soft nontender. No rebound, no guarding. Back nontender. NAVARRO x4, no focal neuro deficits. No peripheral edema. normal color for ethnicity , WWP. - Medical Decision Making 08/25/19 22:22 Vital Signs Temp Pulse Resp BP Pulse Ox 98.0 F 67 18 121/51 L 100 08/25/19 20:23 08/25/19 20:23 08/25/19 20:23 08/25/19 20:23 08/25/19 20:23 ddx, jaw pain, arrhythmia, atypical ACS, dissection, anemia, electrolyte abnormalities, metabolic derangements. Vital signs noted, reviewed and within normal limits, normotensive. Electrolytes and CBC is normal, baseline anemia is noted, creatinine and electrolytes within normal limits, troponin is negative so unlikely to be cardiac. Chest x-ray is clear. CTA to evaluate for possible dissection for her atypical symptoms and jaw pain, unremarkable study per imaging on-call. There are some incidental thyroid nodules and nonspecific dilatation of the urinary collecting system without evidence of pyelonephritis or signs of infection. Patient does not have any urinary symptoms so defer treatment and can have this followed up outpatient. She has a nontender abdomen and flank. No systemic findings and no symptoms to suggest tract infection. CT scan was negative for aortic dissection. Her jaw pain has improved. No chest pain or shortness of breath so this is unlikely cardiac or eighth arrhythmia. Pt to be discharged in stable condition. Patient and family made aware of clinical impression, treatment recommendations and disposition plan, return precautions discussed (including but not limited to new or persistent/worsening symptoms, pain, fevers, or signs of infection, chest pain, respiratory distress , inability to tolerate oral intake, dehydration, syncope, or neurologic changes ). Follow up with PMD as recommended, follow up information provided, take medications as instructed for duration of time. continue with supportive care, avoid triggers and precipitants. All questions answered to patient's satisfaction and expressed understanding and comfort with this. At the time of discharge, the patient is alert, clinically improved, tolerating po and verbalizes understanding of instructions, satisfied with the care received and felt comfortable with the plan. Patient does not suffer from an acute life- threatening medical condition at this time and is safe for outpatient follow- up. 08/26/19 01:01 08/26/19 01:19
[2019-08-25 22:39] LABS: ALBUMIN 3.5 g/dl (3.4-5.0); BILIRUBIN,TOTAL 0.3 mg/dL (0.2-1); BLOOD UREA NITROGEN 23.6 mg/dL (7-18); CALCIUM 9.1 mg/dL (8.5-10.1); N-TERMINAL BNP 85.4 pg/ml (5-125); PHOSPHOROUS 3.4 mg/dL (2.5-4.9); POTASSIUM 4.3 mmol/L (3.5-5.1); TOT PROT 6.4 g/dl (6.4-8.2)
[2019-08-25 22:43] LABS: INR 1.08 (0.83-1.09); PROTHROMBIN TIME (PATIENT) 12.7 SEC (9.7-13.0)
--- NOTE | 2019-08-26 17:55 | EKG ---
Test Reason : Blood Pressure : / mmHG Vent. Rate : 069 BPM Atrial Rate : 069 BPM P-R Int : 176 ms QRS Dur : 084 ms QT Int : 412 ms P-R-T Axes : 073 086 040 degrees QTc Int : 441 ms NORMAL SINUS RHYTHM WITH SINUS ARRHYTHMIA POSSIBLE LEFT ATRIAL ENLARGEMENT BORDERLINE ECG WHEN COMPARED WITH ECG OF 11-SEP-2018 11:10, NO SIGNIFICANT CHANGE WAS FOUND Confirmed by MD Genie, Rajinder ([id number]) on 08/26/2019 5:54:54 PM Referred By: Confirmed By:Rajinder Prescott MD
== END 2019-08-26 01:30 | disposition home or self-care (01) ==
LOC: JER 20:17
PROC: 3E033NZ Introduction of Analgesics, Hypnotics, Sedatives into Peripheral Vein, Percutaneous Approach (ICD-10-PCS; principal; 2019-08-25)
DX: R68.84 Jaw pain (principal); I10 Essential (primary) hypertension; E78.5 Hyperlipidemia, unspecified; E11.9 Type 2 diabetes mellitus without complications; Z79.84 Long term (current) use of oral hypoglycemic drugs; I69.898 Other sequelae of other cerebrovascular disease; I69.892 Facial weakness following other cerebrovascular disease
CPT/HCPCS: 36415; 71046-TC-FY; 71275-TC; 74175-TC; 80053; 82550; 83735; 83880; 84100; 84443; 84484; 85025; 85610; 85730; 93005; 93010; 96374; 99284-25; J0131